=== PATIENT | male | born 1970 | race Caucasian/White ===

== ENCOUNTER 2023-04-06 07:05 | Emergency (ER) | payer BC, SELFPAY ==
[2023-04-06 07:08] VITALS: BP 156/100
[2023-04-06 07:56] VITALS: BMI 28.5
[2023-04-06 08:02] VITALS: BP 124/93
[2023-04-06 08:43] LABS: % Basophils 0.7 % (0-2); % Immature Granulocytes 0.3 % (0-0.5); % Lymphocytes 35.3 % (20.5-51.1); % Monocytes 7.5 % (1.7-9.3); % Neutrophils 55.2 % (42.2-75.2); Absolute Basophils 0.1 10^3/uL (0-0.2); Absolute Eosinophils 0.1 10^3/uL (0-0.7); Absolute Lymphocytes 2.4 10^3/uL (1.2-3.4); Absolute Monocytes 0.5 10^3/uL (0.1-0.6); Absolute Neutrophils 3.8 10^3/uL (1.4-6.5); Hematocrit 42.9 % (39.0-52.0); Hemoglobin 15.3 g/dL (13.0-18.0); Mean Corp Hgb Conc. 35.7 g/dL (33.0-37.0); Mean Corpuscular Volume 89.7 fL (80.0-94.0); Mean Platelet Volume 9.1 fL (7.4-10.4); Nucleated Red Blood Cells % 0 % (-); Platelet Count 262 10^3/uL (130-400); Red Blood Cell Count 4.78 10^6/uL (4.70-6.10); Red Cell Dist. Width 12.6 % (11.5-14.5); White Blood Cell Count 6.8 10^3/uL (4.8-10.8)
[2023-04-06] MEDS: TORADOL 15 MG IV (08:51)
[2023-04-06 09:00] VITALS: BP 124/100
[2023-04-06 09:01] LABS: Troponin I < 0.012 ng/ml
[2023-04-06 09:25] LABS: ALT (SGPT) 24 U/L (0-50); AST (SGOT) 22 U/L (17-59); Albumin 4.4 g/dl (3.5-5.0); Alkaline Phosphatase 65 U/L (38-126); Blood Urea Nitrogen 17 mg/dl (9-20); Calcium 9.9 mg/dl (8.4-10.2); Carbon Dioxide 27 mmol/L (22-30); Chloride 106 mmol/L (98-107); Estimated Creatinine Clearance 101 ml/min; Glucose 103 mg/dl (70-99); Lipase 72 U/L (23-300); Potassium 4.1 mmol/L (3.5-5.1); Sodium 138 mmol/L (135-145); Total Bilirubin 0.6 mg/dl (0.2-1.3); Total Protein 7.2 g/dl (6.3-8.2); eGFR > 60.00
[2023-04-06 09:48] LABS: D-Dimer < 0.27 ug/mlFEU (0.00-0.50)
[2023-04-06 10:00] LABS: Urine Albumin Negative (Neg - Trace); Urine Bilirubin Negative (Negative); Urine Character Clear (Clear); Urine Color Yellow; Urine Glucose Negative (Negative); Urine Ketone Negative (Negative); Urine Leukocyte Negative (Negative); Urine Nitrite Negative (Negative); Urine Occult Blood Negative (Negative); Urine Urobilinogen Negative (Neg - 1+)
--- NOTE | 2023-04-06 10:33 | ED.GENMED ---
History of Present Illness
General
Chief Complaint: Chest Problem
Source: patient
Exam Limitations: none
Time Seen by Provider: 04/06/23 08:02
Nursing documentation reviewed up to this point in time: agreed with
Travel History
Have you had any contact with someone who has COVID-19?: No
Do you have any symptoms of coronavirus? Fever > 100 degrees, chills, cough, shortness of breath, sore throat, loss of taste or smell, muscle aches, or headache?: No
History of Present Illness
History of Present Illness:
Patient is a 52-year-old male with a history of chronic hypertension on 4 BP meds, typical bleed blood pressure is 130s over 100
Presents for 1-1/2 weeks of left-sided chest pain in the rib area that began spontaneously without any trauma. Patient says when he twists or bends over he feels the pain most significantly. He has not had any significant shortness of breath or
pleuritic component though occasionally with a deep breath he might feel it. Patient said he had a history of testicular cancer in the past and he was very concerned that maybe he had cancer. The pain seem to get worse yesterday and that is why he
is here today. He said he did not sleep well. Patient says with exertion the pain does not get worse, it is just mostly with twisting or bending. Patient has not had any fever, chills, cough, hemoptysis, weight loss, nausea, vomiting, hematuria,
urinary frequency, rash.
Past History
Past History
ED Past Medical History: Cancer (testicular cancer 2009 w/ chemo), HTN and Other (cellulitis, migraine, right biceps tear)
ED Past Surgical History: Orthopedic (Right biceps tendon repair) and Other (septoplasty 2018)
Social History
Tobacco: Smoker
Alcohol: None
Drug: None
Personal:
Living: with family
Employment: Employed
Family History
Family History: Diabetes
Review of Systems
Review of Systems
Allergies reviewed?: Yes
All Other Systems: Not applicable
Phy Exam
Physical Exam
Physical Exam:
GENERAL: Alert , in no apparent distress
EYE: pupils equal and reactive
NECK: Supple
ENT: o/p clr, mmm.
CARDIAC: Regular rate and rhythm .
LUNGS: Clear breath sounds bilaterally, no acute respiratory distress, no wheezes/rales/rhonchi
Chest wall: No rash, skin inspection normal, patient seem to have a very specific point tender spot in the left lateral ribs, lower ribs in the mid axillary line that reproduces symptoms
ABDOMEN: Soft, without focal tenderness, no r/g, no cvat, normal bowel sounds
NEUROLOGICAL: Alert and oriented, no focal neuro deficits
SKIN: Warm and dry, skin intact.
MUSCULOSKELETAL: No edema, well perfused. neg rachel's sign
PSYCH: Normal and appropriate interaction.
Course
Orders/Labs/Results
Orders:
Orders
04/06/23 07:11
Electrocardiogram (*1) Urgent
Reason for Study: Hypertension, Benign
04/06/23 07:12
EKG- Treatment ONCE
04/06/23 08:30
D-Dimer Urgent
04/06/23 08:31
CMP [Comprehensive Metabolic Panel] Urgent
Complete Blood Count/With Diff Urgent
Lipase Urgent
Comment: ADD ON
Troponin I Urgent
04/06/23 08:42
Add On- LAB Urgent
Tests Added?: lipase
Ketorolac [Toradol] 15 mg IV NOW STA
Ribs, Left 3 View W/PA Chest CR [CR Ribs-left 3 Vw W/pa Chest] Urgent
Comment:
Reason For Exam: left lat rib pain 2 weeks
04/06/23 09:17
Urinalysis Reflex To Culture Urgent
Date Specimen was Collected: 04/06/23
Time Specimen was Collected: 09:12
Abnormal Lab Results
04/06/23
08:31
MCH 32.0 H pg
(27.0-31.0)
Glucose 103 H mg/dl
(70-99)
04/06/23 08:31
04/06/23 08:31
Vital Signs
Initial and Last Documented VS:
Initial Vital Signs
Temp Pulse Resp BP Pulse Ox
98.5 F 89 18 156/100 100
04/06/23 07:08 04/06/23 07:08 04/06/23 07:08 04/06/23 07:08 04/06/23 07:08
Last Documented Vital Signs
Temp Pulse Resp BP Pulse Ox
98.5 F 68 6 124/100 98
04/06/23 07:08 04/06/23 09:00 04/06/23 09:00 04/06/23 09:00 04/06/23 09:17
MDM/Problems Addressed
Differential Diagnosis Includes:
msk pain, PE, pleural effusion, kidney stone
MDM/Problems Addressed:
52 y/o M with h/o HTN
fhx of CAD in dad
here with left lower rib/chest wall pain laterally when he bends over to tie shoes and twists
no insighting injury known
has been ongoing for about 1.5 weeks
tried tylenol once or twice
pain got worse last night which is why he is hre today and pt was worried that maybe this was cardiac or perhaps cancer
he has h/o testicular cancer and is worried
he doesn't report SOB but says yenifer this noticed he seemed winded when talking; pt didn't notice
no rcent travel, h/o DVT/PE
no fever, chills, cough, rash, vomiting, urinary symptoms
pt is very comfortable appearing
is able to move in the bed easily
did seem to have a point tender spot left mid ax line lateral ribs
no rash
lungs clear
no tachycardia
abd nontender
ekg normal, no st elevation/depression
d dimer, trop neg
cxr indep reviewed by me and no fx or ptx or effusions
lipase normal
ua neg
pain got better with toradol
he still states his concern about cancer
pt recommended to trial NSAIDs for a fe wdays but if pain persist see his pcp who can do advanced level imaging; no concern for any emergaent causes today
pt verbalizes understanding
d/w ed attending who agrees
*Critical Care Note
Total Time (30-74mins, 75-104mins- exclusive of procedures): Not Applicable
ED Attending Note
-
Portions of this chart may have been created with voice recognition software.� Occasional wrong word or��sound alike� substitutions may have occurred due to the inherent limitations of voice recognition software.
Discharge Plan
Departure
Patient Disposition: Home (Routine Discharge)
Date of Disposition: 04/06/23
Time of Disposition: 10:36
Patient with high blood pressure during this ER visit?: Yes
Condition: Fair
Covid-19: Not Applicable
Discharge Problem:
Hypertension, Chest wall pain
Instructions: Costochondritis (DC), BLOOD PRESSURE
Prescriptions:
No Action
losartan 50 mg Tablet
50 mg PO DAILY 30 Days Qty: 30 0RF
propranolol 20 mg Tablet
20 mg PO BID 30 Days Qty: 60 0RF
amlodipine 10 mg Tablet
10 mg PO DAILY
hydrochlorothiazide 12.5 mg tablet
25 mg PO DAILY
Referrals:
Ronald Allen, DO [Family Provider] - Follow up in 2-3 days
Activity Restrictions/Additional Instructions:
Your workup here is reassuring. You should follow-up with your family doctor next week if the pain is continuing to see if you need advanced level imaging. At this time we can recommend that you try your meloxicam as directed for the next 3 to 5
days with food regularly to see if this helps your pain and inflammation. Watch for fever, shortness of breath, rash, abdominal pain etc. and return for these as needed. Otherwise follow-up with your doctor.
Your blood pressure was elevated which is chronic for you. Have this rechecked by your doctor
Interventions
Interventions:
*Risk Screen - Suicide Last Done: 04/06/23 07:08
*General Assessment Last Done: 04/06/23 07:08
*Neglect/Abuse Screening Last Done: 04/06/23 07:08
ED- Fall Risk Assessment Last Done: 04/06/23 08:58
*ED COVID-19 Vaccine History Last Done: 04/06/23 07:11
*Nursing Disposition Last Done: 04/06/23 10:53
ED- Cardiac Assessment Last Done: 04/06/23 07:58
ED- Pulmonary Assessment Last Done: 04/06/23 07:59
Discharge Date and Time
Discharge Date/Time: 04/06/23 10:54
== END 2023-04-06 10:54 | disposition home or self-care (01) ==
LOC: EMR 07:05
PROVIDERS: Physician Assistant; EMERGENCY PHYSICIAN Emergency Medicine; FAMILY PHYSICIAN Family Medicine
DX: R07.89 Other chest pain (principal); I10 Essential (primary) hypertension; Z85.47 Personal history of malignant neoplasm of testis; Z83.3 Family history of diabetes mellitus; Z82.49 Family history of ischemic heart disease and other diseases of the circulatory system; F17.200 Nicotine dependence, unspecified, uncomplicated
CPT/HCPCS: 99283; 96374; 71101; 80053; 81003; 83690; 84484; 85025; 85379; 93005

== ENCOUNTER → 2024-11-09 07:51 | Outpatient (REF) | payer BC, SELFPAY ==
[2024-11-09 09:44] LABS: Hematocrit 46.2 % (39.0-52.0); Hemoglobin 15.8 g/dL (13.0-18.0); Mean Corp Hgb Conc. 34.2 g/dL (33.0-37.0); Mean Corpuscular Volume 91.7 fL (80.0-94.0); Nucleated Red Blood Cells % 0 % (-); Platelet Count 214 10^3/uL (130-400); Red Cell Dist. Width 13.0 % (11.5-14.5)
[2024-11-09 10:22] LABS: ALT (SGPT) 19 U/L (0-50); AST (SGOT) 21 U/L (17-59); Albumin 4.5 g/dl (3.5-5.0); Alkaline Phosphatase 63 U/L (38-126); Blood Urea Nitrogen 26 mg/dl (9-20); Calcium 10.1 mg/dl (8.4-10.2); Carbon Dioxide 28 mmol/L (22-30); Chloride 106 mmol/L (98-107); Glucose 93 mg/dl (70-99); HDL Cholesterol 49 mg/dl; LDL Cholesterol, Calculated 124 mg/dl; Potassium 4.8 mmol/L (3.5-5.1); Sodium 141 mmol/L (135-145); Total Protein 7.6 g/dl (6.3-8.2); Very Low Density Lipoprotein 29 mg/dl (0-30); eGFR > 60.00
[2024-11-09 10:51] LABS: TSH 1.27 uIU/ml (0.47-4.68)
== END ==
LOC: REG 07:51
PROVIDERS: ATTENDING PHYSICIAN Family Medicine
DX: I10 Essential (primary) hypertension (principal); E78.5 Hyperlipidemia, unspecified; R53.83 Other fatigue; E03.9 Hypothyroidism, unspecified
CPT/HCPCS: 80053; 80061; 84443; 85025